=== PATIENT | male | born 1955 | race Caucasian/White ===

== ENCOUNTER → 2019-01-10 13:46 | Outpatient (CLI) | payer BC, SELFPAY ==
--- NOTE | 2019-01-10 17:27 | NEURO ---
NCS and/or EMG Patient Report HPI: Patient is a 63-year-old male who presented with complaint of numbness and tingling in the first 3 digits of the left hand especially thumb, index and middle fingers. Patient also has slight numbness and tingling in the fourth and fifth fingers as well. Patient also experiences severe aching in left hands while sleeping. Patient has seen chiropractor without much relief. Patient does not have history of diabetes or any known neck injuries. Patient is right-hand dominant. Patient has prior history of carpal tunnel syndrome surgery. Patient has been having the symptoms in the left hand for last 2 years or so. Physical Exam: Mild tenderness of left wrist . Tinel's sign slightly positive at left wrist. Mild sensory deficit in left hand fingers especially left thumb index and middle fingers noted. Findings: 1. There is prolongation of distal latency of left median sensory nerve response. 2. There is prolongation of distal latency of the left median motor nerve response. 3. Normal left ulnar sensory and motor nerve conduction studies. 4. Normal needle examination of the left upper extremity. Impression: 1. Findings are consistent with moderately severe left median mononeuropathy at wrist due to carpal tunnel syndrome. 2. No electrodiagnostic evidence of left ulnar peripheral neuropathy. Recommendation: 1. Patient recommended to wear left hand splint as much as possible. 2. Patient recommended to avoid repetitive left hand movements and heavy lifting from left hand. 3. Recommended to see a hand surgeon for left hand carpal tunnel surgical release if symptoms continues.
== END ==
PROVIDERS: Family Provider Pediatrics; PCP Pediatrics; Referring Provider Orthopaedic Surgery; Visit Provider Orthopaedic Surgery
DX: G56.02 Carpal tunnel syndrome, left upper limb (principal); M67.422 Ganglion, left elbow
CPT/HCPCS: 95886; 95908